=== PATIENT | female | born 1965 | race Caucasian/White ===

== ENCOUNTER 2021-04-13 20:34 | Emergency (ER) | payer MEDICAID ==
[~2021-04-13] VITALS: Ht 157.5 cm; Wt 61.9 kg
[2021-04-13 20:45] VITALS: BP 121/79
--- NOTE | 2021-04-13 20:48 | NUR ---
TO LOBBY A/W BED AMBULATORY
[2021-04-13] MEDS ORDERED: KETOROLAC 60 MG/2 ML VIAL IM ONE (22:45)
[2021-04-13] MEDS ORDERED: diphenhydrAMINE 50 MG/ML VIAL IM ONE (22:45)
[2021-04-13] MEDS ORDERED: PROCHLORPERAZINE 10 MG/2 ML VIAL IM ONE (22:45)
--- NOTE | 2021-04-13 23:39 | NUR ---
pt able to ambulate to chair for med
--- NOTE | 2021-04-14 | NUR ---
Patient discharged with v/s stable. Written and verbal after care instructions given and explained. Patient verbalized understanding. Ambulatory with steady gait. All questions addressed prior to discharge. Advised to follow up with PMD.
== END 2021-04-14 | disposition home or self-care (01) ==
LOC: MED 20:34
DX: R51.9 Headache, unspecified (principal); Z98.890 Other specified postprocedural states
CPT/HCPCS: 70450; 96372; 99284; J0780; J1200; J1885

== ENCOUNTER 2021-11-22 22:31 | Emergency (ER) | payer MEDICAID ==
[~2021-11-22] VITALS: Ht 149.9 cm; Wt 59.6 kg
[2021-11-22 23:03] VITALS: BP 123/67
--- NOTE | 2021-11-22 23:06 | NUR ---
TO LOBBY A/W BED AMBULATORY
--- NOTE | 2021-11-22 23:25 | NUR ---
Dr. Rachel examining patient.
--- NOTE | 2021-11-23 00:25 | NUR ---
PT AMBULATED TO BED 9
--- NOTE | 2021-11-23 00:38 | NUR ---
Female Dining Car Waiter/Waitress, CLEVE ARIAS, accompanied female patient for ABCESS.
--- NOTE | 2021-11-23 00:38 | NUR ---
56 Y/O FEMALE BIBS FRO MHOME, C/O ABCESS TO LEFT UPPER THIGH X3 DAYS. RAISED, RED, 8/10 PAIN. DENIES FEVER, COUGH, CP, N/V/D, AND SOB.
--- NOTE | 2021-11-23 00:39 | NUR ---
Dr. Rachel examining patient.
[2021-11-23] MEDS ORDERED: LIDOCAINE MPF 1% 10 MG/ML VIAL INJ ONE (00:45)
[2021-11-23] MEDS ORDERED: ACET-10509 PO (00:51)
[2021-11-23] MEDS ORDERED: CLIN300C2 PO (00:51)
[2021-11-23 02:09] VITALS: BP 118/67
--- NOTE | 2021-11-23 02:09 | NUR ---
LEFT BUTTOCK WOUND DRESS WITH 4X4 GAUZE PAD AND PAPER TAPE Addendum: 11/23/21 at 0210 david HICKS DRESSING TIME WAS 0115
--- NOTE | 2021-11-23 02:09 | NUR ---
Patient discharged with v/s stable. Written and verbal after care instructions given and explained. Patient alert, oriented and verbalized understanding of instructions. Ambulatory with steady gait. All questions addressed prior to discharge. ID band removed. Patient advised to follow up with PMD. Rx of Tylenol and Clindamycin given. Patient educated on indication of medication including possible reaction and side effects. Opportunity to ask questions provided and answered.
== END 2021-11-23 02:09 | disposition home or self-care (01) ==
LOC: MED 22:31
DX: L02.416 Cutaneous abscess of left lower limb (principal); L03.116 Cellulitis of left lower limb; F17.290 Nicotine dependence, other tobacco product, uncomplicated; F17.200 Nicotine dependence, unspecified, uncomplicated; Z79.899 Other long term (current) drug therapy; Z71.6 Tobacco abuse counseling
CPT/HCPCS: 10060; 99283; J2001

== ENCOUNTER 2022-03-30 21:05 | Emergency (ER) | payer MEDICAID ==
[~2022-03-30] VITALS: Ht 152.4 cm; Wt 66.7 kg
[~2022-03-30 21:05] MED LIST: ACET-10509 PO; CLIN300C2 PO
[2022-03-30 21:15] VITALS: BP 121/84
--- NOTE | 2022-03-30 21:18 | NUR ---
TO LOBBY A/W BED AMBULATORY
[2022-03-30 21:20] VITALS: BP 121/84
--- NOTE | 2022-03-30 23:30 | NUR ---
SEEN AND EXAMINED BY FARHEEN
[2022-03-30] MEDS ORDERED: IBUP-1842 PO (23:52)
[2022-03-30] MEDS ORDERED: DICL100G5 TP (23:52)
== END 2022-03-31 00:26 | disposition home or self-care (01) ==
LOC: MED 21:05
DX: M77.12 Lateral epicondylitis, left elbow (principal)
CPT/HCPCS: 73080; 99283